=== PATIENT | female | born 1975 | race Two or more races ===

== ENCOUNTER 2024-12-05 13:25 | Emergency (ER) | payer BC, SELFPAY ==
[2024-12-05 13:26] VITALS: BMI 33.2
[2024-12-05 13:37] VITALS: BP 131/90; PULSE 86; RESP 18; TEMP 36.8; O2SAT 98
--- NOTE | 2024-12-05 13:48 | XR_ITS ---
Examination: CT abdomen and pelvis without contrast. Coronal 3-D reconstructions. Sagittal 2-D reconstructions. Date and time of exam: December 05, 2024, 1535 hours INDICATIONS: Left-sided flank pain beginning 3 days ago CTDI: vol (mGy): 9.23 DLP: (mGycm): 543 Technique: Axial images of the abdomen have been obtained, 3 mm slice thickness Intravenous contrast material has not been administered. Low dose protocols were performed. One or more of the following dose reduction techniques were used; automated exposure control, adjustment of the mA and/or KV according to patient size, use of iterative reconstruction technique. Findings: No focal liver or splenic lesions Absent gallbladder No pancreatic mass 2 mm right renal calculus 3 mm right renal calculus Significant left hydronephrosis secondary to 10 mm left ureteral calculus No bowel obstruction No diverticulitis Intrauterine device satisfactory position Right hip arthroplasty generates artifact in the pelvis No bladder mass IMPRESSION: Significant left hydronephrosis secondary to a 10 mm left ureteral calculus
--- NOTE | 2024-12-05 13:49 | PD.EDRME ---
Rapid Medical Screening Exam [facility] Arrival date/time: 12/05/24 13:25 49-year-old female with no known medical history presents to the emergency room with a chief complaint of left-sided flank pain x 3 days. Patient had an ultrasound and blood work completed today which was found some left-sided hydronephrosis. Patient was sent to the emergency room for a CT scan of her abdomen to rule out ureter stone I have greeted and performed a focused initial assessment of this patient. A comprehensive ED assessment and evaluation of the patient, analysis of all test results, and completion of the medical decision making process will be conducted by additional ED providers. Chief Complaint: Back Pain/Injury Vital signs: Vital Signs Temperature 98.2 F 12/05/24 13:37 Pulse Rate 86 12/05/24 13:37 Respiratory Rate 18 12/05/24 13:37 Blood Pressure 131/90 H 12/05/24 13:37 Pulse Oximetry (%) 98 12/05/24 13:37 Oxygen Delivery Method Room Air 12/05/24 13:37 Vital signs reviewed by provider: Yes Exam: Left-sided CVA tenderness with palpation Soft nontender abdomen with palpation. Active bowel sounds to all 4 quadrants Clinical Impression: Hydronephrosis/pyelonephritis/renal calculi/UTI
[2024-12-05 15:03] LABS: HCG Qualitative,Urine Negative
[2024-12-05] MEDS: KETOROLAC INJ 60 MG/2 ML VIAL 30 MG IM (16:54)
--- NOTE | 2024-12-05 19:22 | PD.EDBACK ---
ED Back Injury Pain RME/HPI General Chief Complaint: Back Pain/Injury Stated Complaint: L FLANK PAIN X4 DAYS; SENT BY PCP FOR KIDNEY STONE Time Seen by Provider: 12/05/24 15:42 Source: patient Arrival date/time: 12/05/24 13:25 Mode of arrival: ambulatory Limitations: no limitations RME / HPI Complaint: back pain and other (4 days of flank pain blood left side) Onset (ago): day(s) (4) Duration: intermittent Similar Symptoms Previously: Yes Location: left flank Severity: moderate Radiation: none Relieving factors: none Exacerbating factors: none Associated symptoms: denies other symptoms Treatments prior to arrival: other (None.) RME / HPI Narrative: 12/05/24 13:25 49-year-old female with no known medical history presents to the emergency room with a chief complaint of left-sided flank pain x 3 days. Patient had an ultrasound and blood work completed today which was found some left-sided hydronephrosis. Patient was sent to the emergency room for a CT scan of her abdomen to rule out ureter stone. The patient states that her pain is not as worse as previously but is a 6 out of 10 on arrival and is now a 2 out of 10. The patient states she has a history of kidney stones bilaterally right and left. The patient states that she has seen Dr. Chase in the past but has not seen him since 2019 because she had to change insurance because he her insurance is not covering it his services anymore. 2021 she had a left 10 mm kidney stone that needed to get blasted . Over 20 years ago she had a 20 mm stone on her right side that also needed to be blasted Impression: Okay Related Data Allergies Allergy/AdvReac Type Severity Reaction Status Date / Time No Known Allergies Allergy Unverified 12/05/24 19:46 Review of Systems Genitourinary Genitourinary: Reports as per HPI Past Medical History Past Medical History CARDIAC: Positive Hypercholesterolemia and Hypertension; Negative Congestive Heart Failure RESPIRATORY: Negative Chronic Obstructive Pulmonary Disease (COPD) GENITOURINARY: Positive Kidney Stones; Negative Renal Disease ENDOCRINE: Negative Diabetes Mellitus Type 1 or Diabetes Mellitus Type 2 Social History SMOKING STATUS: Never smoker ED Exam General Limitations: Present no limitations Course Course Course Narrative: Repeat labs at 8 PM show blood count of 8.2 and a hemoglobin of 13/40. Platelets are normal at 295. Otherwise chemistry is normal other than potassium of 3.3. Urine creatinine is 1101.1 and normal. hCG is negative. Quality Measures none Orders Category Date Time Status Insert IV NOW Care 12/05/24 19:[address] abdomen pelvis wo con Stat Exams 12/05/24 13:48 Completed CBC Stat Lab 12/05/24 20:00 Completed CMP [Comprehensive Metabolic Panel] Stat Lab 12/05/24 20:00 Completed HCG Qualitative,Urine Stat Lab 12/05/24 14:49 Completed Lactic Acid [Lactate (Lactic Acid)] Stat Lab 12/05/24 20:00 Completed Procalcitonin Stat Lab 12/05/24 20:00 Completed Urinalysis Stat Lab 12/05/24 19:41 Ordered Ketorolac Inj [Toradol Inj] Med 12/05/24 16:50 Discontinued 30 mg IM X1 ONE Morphine* Inj Med 12/05/24 19:38 Discontinued 4 mg IV X1 ONE Tamsulosin HCl [Flomax] Med 12/05/24 20:54 Once 0.4 mg PO X1 ONE cefTRIAXone [Rocephin] 2 gm Med 12/05/24 20:52 Active SODIUM CHLORIDE 0.9% (Popper) [Ns 0.9% (P)] 50 ml IV X1 Vital Signs Vital signs: Vital Signs Temperature 98.2 F 12/05/24 13:37 Pulse Rate 86 12/05/24 13:37 Respiratory Rate 18 12/05/24 13:37 Blood Pressure 131/90 H 12/05/24 13:37 Pulse Oximetry (%) 98 12/05/24 13:37 Oxygen Delivery Method Room Air 12/05/24 13:37 Back Pain / Injury MDM Narrative MDM Narrative:: 49-year-old female with multiple kidney stones requiring intervention bilaterally in the past coming into the emergency department with 3 to 4-day history of left flank pain that is similar to her previous kidney stones in the past. The patient otherwise does not have a fever. She was seen earlier at her primary care physician's office today in which they did a urine and ultrasound. The ultrasound showed a 8 mm stone on the right but the patient is not having pain on the right. Patient has a history of lithotripsy on a right kidney stone in the ureter that was 20 mm in size over 20 years ago. She had a second lithotripsy on a left kidney stone in [address] Chase who she has she has not seen since, and she states that this is similar to her previous kidney stones. In the emergency department the patient is not septic appearing. She reports that she had earlier labs today and was told that they were normal. She did not have a UTI per her primary care and the patient. While in the emergency department the patient had labs that were ordered to look for leukocytosis. BUN/creatinine have been sent to look for acute renal failure. CT scan was completed which shows a 10 mm stone with hydroureteronephrosis on the right. MEDS: The patient was treated with Toradol and her pain is down to 2 out of 10. 4 mg morphine is given IV with improved pain. 2 gmof IV ceftriaxone is ordered. Patient otherwise had labs earlier today that were negative. Urine was negative. The labs have been resent. Repeat labs still show no leukocytosis or infection at this time. Patient data External records reviewed:: None Clinical information provided by:: patient and none (Primary care report and nursing notes.) Social determinants that could affect healthcare access:: none Patient has the following chronic illnesses:: Bilateral kidney stones requiring lithotripsy How is presenting disease/condition affected by chronic disease/condition?: exacerbated by Evaluation data The following diagnostics were reviewed and interpreted by me:: lab results and radiology exam(s) Lab and/or radiology exams considered but not ordered:: None Interpretation Summary: CT abdomen and pelvis without contrast. 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 Soler with one of them on the left lipstick 60 she is coming in with 4 days of left flank pain. Significant left hydronephrosis secondary to a 10 mm left ureteral calculus. The patient had no blood drawn initially but review of the labs from this morning from outpatient showed a white count of 10, hemoglobin 13/40 which is normal. CMP was reviewed and was normal, sodium is 140, potassium is 3.6, BUN/creatinine is 8/1.0. Urine was negative for everything except for trace blood. Medications / Prescriptions Medications or Prescriptions considered but not ordered:: None Medication administrations:: Medication Administration History Ceftriaxone Sodium 2 gm/ (Sodium Chloride) 50 mls @ 100 mls/hr IV X1 ONE Stop: 12/05/24 21:21 Tamsulosin HCl (Tamsulosin Hcl 0.4 Mg Capsule) 0.4 mg PO X1 ONE Stop: 12/05/24 20:55 Discontinued Medications Ketorolac Tromethamine (Ketorolac Inj 60 Mg/2 Ml Vial) 30 mg IM X1 ONE Stop: 12/05/24 16:51 Last Admin: 12/05/24 16:54 Dose: 30 mg Documented By: GM Morphine Sulfate (Morphine Sulf Inj 4 Mg/Ml Vial) 4 mg IV X1 ONE Stop: 12/05/24 19:39 Last Admin: 12/05/24 19:57 Dose: 4 mg Documented By: DB As above Consultations Consultation(s) initiated? (list below): Yes Consultation #1 (Physician, Specialty, Details): Transfer center paged for transfer for Urology. Time: 19:53 Consultation #2 (Physician, Specialty, Details): Discussed with Urology [facility], Dr. Weber, we discussed history physical exam, and CT findings and agreed to the transfer. Ceftriaxone and Flomax is ordered. Time: 20:46 Diagnosis Differential diagnosis back pain/injury: renal colic, pyelonephritis and other (Kidney stone, obstructing kidney stone.) Most likely diagnosis given after review of the tests above:: Left 10 mm ureteral stone, left hydronephrosis, severe Admission Indicated Admission indicated?: not indicated Explain why admission is indicated or not indicated:: Transfer for admission Admission Request Was there a request for admission?: No Admission Attestation Admission request attestation: Patient is being transferred [facility]. Disposition Plan Disposition Plan: Transfer Discharge Plan Plan Patient Disposition: [facility] [place] [facility] Pt Being Transferred to: [facility] Service Needed for Transfer: Urology Patient condition on transfer: Stable Prescriptions/Referrals Referrals: Neetu Tsai NP [Primary Care Provider] - In 1 week Problem List Clinical Impression: Hydroureter on left, Calculus of left kidney, Hydronephrosis, Acute left flank pain Patient/Caregiver Discharge Instructions Print Language: Sinhala Stand Alone Forms: [employer] Info., Patient Portal Info Letter
[2024-12-05 19:52] VITALS: BP 143/99; PULSE 72; RESP 16; O2SAT 98
[2024-12-05] MEDS: MORPHINE SULF INJ 4 MG/ML VIAL IV (19:57)
[2024-12-05 20:09] LABS: Lactate (Lactic Acid) 0.7 mMol/L (0.4-2.0)
[2024-12-05 20:12] LABS: Basophils # (Auto) 0.1 Thou/mm3 (0.0-0.2); Basophils % (Auto) 1 % (0-2.5); Eosinophils # (Auto) 0.4 Thou/mm3 (0.0-0.5); Eosinophils % (Auto) 5 % (0-10); Hematocrit 40.3 % (36.0-46.0); Hemoglobin 13.7 g/dL (12.0-16.0); Immature Granulocytes Auto 0.02 Thou/mm3 (0.00-0.00); Lymphocytes # (Auto) 3.7 Thou/mm3 (1.0-4.8); Lymphocytes % (Auto) 45 % (10-50); Mean Corpuscular HGB Conc 34.0 g/dl (31.0-37.0); Mean Corpuscular Hemoglobin 29.5 pg (25.0-35.0); Mean Corpuscular Volume 87 fL (80-100); Monocytes # (Auto) 0.7 Thou/mm3 (0.0-0.8); Monocytes % (Auto) 9 % (0-12); Neutrophils # (Auto) 3.2 Thou/mm3 (1.8-7.7); Neutrophils % (Auto) 39 % (37-80); Nucleated Red Blood Cell # 0.00 Thou/mm3 (0.00-0.00); Nucleated Red Blood Cell % 0 /100 WBC (0); Platelet Count 295 Thou/mm3 (140-440); RDW Standard Deviation 38.5 fL (36.4-46.3); Red Blood Count 4.65 Miln/mm3 (4.00-5.20); White Blood Count 8.2 Thou/mm3 (3.6-11.0)
[2024-12-05 20:37] LABS: Alanine Aminotransferase 21 U/L (10-49); Albumin, Serum 5.1 gm/dL (3.5-5.0); Albumin/Globulin Ratio 1.8 (1.2-2.2); Alkaline Phosphatase 123 U/L (46-116); Anion Gap 10 (7-16); Aspartate Amino Transferase 19 U/L (0-34); BUN/Creatinine Ratio 10 Ratio (12-20); Bilirubin,Total 0.4 mg/dL (0.3-1.2); Blood Urea Nitrogen 11 mg/dL (9-23); Calcium 10.1 mg/dL (8.3-10.6); Calcium (Corrected) 10.1 mg/dL (8.5-10.1); Carbon Dioxide 25.8 mMol/L (20.0-31.0); Chloride 105 mMol/L (98-107); Creatinine (Component) 1.1 mg/dL (0.6-1.3); Estimated Creatinine Clearance 57.4 mL/min (>60); Globulin 2.8 gm/dL (2.3-3.5); Glucose 84 mg/dL (74-106); Osmolality,Calculated 279 (275-295); Potassium 3.3 mMol/L (3.4-5.1); Procalcitonin < 0.04 ng/ml (0.0-0.49); Sodium 141 mMol/L (136-145); Total Protein 7.9 gm/dL (5.7-8.2); eGFR > 60 See Note
[2024-12-05] MEDS: cefTRIAXone 2 GM in SODIUM CHLORIDE 0.9% (Popper) 50 ML IV (21:10)
--- NOTE | 2024-12-05 22:27 | PC.NURSE ---
I CALLED [facility] AND SPOKE TO TRIAGE NURSE ANASTASIYA TO WHOM I GAVE FULL REPORT TOO.
== END 2024-12-05 23:16 | disposition short-term general hospital (02) ==
PROVIDERS: Nurse Practitioner Family; Emergency Provider Emergency Medicine; PCP Nurse Practitioner Family
DX: N13.2 Hydronephrosis with renal and ureteral calculous obstruction (principal)
CPT/HCPCS: 36415; 74176; 80053; 81001; 81025; 83605; 84145; 85025; 96365; 96372; 99283; J0696; J1885; J2270; J7050

== ENCOUNTER → 2024-12-05 | Outpatient (CLI) | payer BC, SELFPAY ==
--- NOTE | 2024-12-05 | XR_ITS ---
Examination: Retroperitoneal ultrasound, complete Technique: Multiple high resolution grayscale images of the retroperitoneum obtained, including kidneys and bladder. Exam date and time: December 05, 2024, 0756 hours INDICATIONS: Onset flank pain beginning 4 days ago. FINDINGS: Right kidney 12.4 cm renal cortex 2.1 cm 8 mm lower pole calculus Left kidney 11.5 cm renal cortex 1.4 cm Advanced left hydronephrosis Mild renal scar formation No bladder mass or bladder calculi Bladder prevoid volume 130 cc IMPRESSION: 8 mm lower pole nonobstructing right renal calculus Advanced left hydronephrosis, consider CT scan abdomen pelvis without contrast follow-up
[2024-12-05 08:19] LABS: Collection Type, Urine Clean Catch; RBC,Urine 0 /hpf (0-3)
[2024-12-05 08:42] LABS: Bilirubin,Urine Negative (Negative); Blood,Urine Trace (Negative); Clarity,Urine Clear (Clear/Hazy); Color,Urine Colorless (Lt Yel-Yel); Culture Indicated,Urine Not Indicated; Glucose, Urine Negative (Negative); Ketones,Urine Negative (Negative); Leukocyte Esterase,Urine Negative (Negative); Nitrite,Urine Negative (Negative); PH,Urine 6.0 (5.0-7.0); Protein,Urine Negative (Neg - Trace); Specific Gravity,Urine 1.001 (1.001-1.035); Squamous Epithelial Cell,Urine < 1 /hpf (0-5); Urobilinogen,Urine Negative mg/dL (0.0-1.0); WBC,Urine < 1 /hpf (0-5)
[2024-12-05 08:45] LABS: Basophils # (Auto) 0.1 Thou/mm3 (0.0-0.2); Basophils % (Auto) 1 % (0-2.5); Eosinophils # (Auto) 0.3 Thou/mm3 (0.0-0.5); Eosinophils % (Auto) 3 % (0-10); Hematocrit 40.7 % (36.0-46.0); Hemoglobin 13.6 g/dL (12.0-16.0); Immature Granulocytes Auto 0.04 Thou/mm3 (0.00-0.00); Lymphocytes # (Auto) 2.6 Thou/mm3 (1.0-4.8); Lymphocytes % (Auto) 26 % (10-50); Mean Corpuscular HGB Conc 33.4 g/dl (31.0-37.0); Mean Corpuscular Hemoglobin 29.2 pg (25.0-35.0); Mean Corpuscular Volume 88 fL (80-100); Monocytes # (Auto) 0.9 Thou/mm3 (0.0-0.8); Monocytes % (Auto) 9 % (0-12); Neutrophils # (Auto) 6.3 Thou/mm3 (1.8-7.7); Neutrophils % (Auto) 62 % (37-80); Nucleated Red Blood Cell # 0.00 Thou/mm3 (0.00-0.00); Nucleated Red Blood Cell % 0 /100 WBC (0); Platelet Count 276 Thou/mm3 (140-440); RDW Standard Deviation 39.3 fL (36.4-46.3); Red Blood Count 4.65 Miln/mm3 (4.00-5.20); White Blood Count 10.2 Thou/mm3 (3.6-11.0)
[2024-12-05 09:09] LABS: Alanine Aminotransferase 21 U/L (10-49); Albumin, Serum 4.9 gm/dL (3.5-5.0); Albumin/Globulin Ratio 1.9 (1.2-2.2); Alkaline Phosphatase 121 U/L (46-116); Anion Gap 9 (7-16); Aspartate Amino Transferase 17 U/L (0-34); BUN/Creatinine Ratio 8 Ratio (12-20); Bilirubin,Total 0.4 mg/dL (0.3-1.2); Blood Urea Nitrogen 8 mg/dL (9-23); Calcium 9.7 mg/dL (8.3-10.6); Calcium (Corrected) 9.7 mg/dL (8.5-10.1); Carbon Dioxide 25.7 mMol/L (20.0-31.0); Chloride 105 mMol/L (98-107); Creatinine (Component) 1.0 mg/dL (0.6-1.3); Globulin 2.6 gm/dL (2.3-3.5); Glucose 81 mg/dL (74-106); Osmolality,Calculated 276 (275-295); Potassium 3.6 mMol/L (3.4-5.1); Sodium 140 mMol/L (136-145); Total Protein 7.5 gm/dL (5.7-8.2); eGFR > 60 See Note
== END | disposition home or self-care (01) ==
LOC: CDIM 07:29 → COPL 08:12
PROVIDERS: PCP Family Medicine; Referring Provider Nurse Practitioner Family; Visit Provider Radiology Diagnostic Radiology
DX: N13.2 Hydronephrosis with renal and ureteral calculous obstruction (principal); N23 Unspecified renal colic
CPT/HCPCS: 36415; 76770; 80053; 81001; 85025

== ENCOUNTER → 2025-01-30 | Outpatient (CLI) | payer BC, SELFPAY ==
--- NOTE | 2025-01-30 16:17 | XR_ITS ---
Examination: Abdomen AP single view Technique: AP portable supine abdomen, single view Exam date and time: January 30, 2025, 1632 hours INDICATION: History kidney stones, status post lithotripsy and stent placement FINDINGS: Left ureteral stent satisfactory position No renal or ureteral calculi noted Abundant stool in the right colon No free air Surgical clips upper right abdomen IMPRESSION: Left ureteral stent satisfactory position
== END | disposition home or self-care (01) ==
LOC: CDIM 16:10
PROVIDERS: PCP Family Medicine
DX: N20.0 Calculus of kidney (principal)
CPT/HCPCS: 74018